=== PATIENT | male | born 1950 | race Caucasian/White ===

== ENCOUNTER 2025-01-13 15:29 | Emergency (ER) | payer MEDICARE, OTHER ==
[~2025-01-13] VITALS: Ht 160 cm; Wt 47.2 kg
[2025-01-13 16:18] LABS: PLATELET COUNT (AUTO) 388 K/uL (150-450); RED BLOOD CELL COUNT(AUTO) 3.85 MIL/uL (4.5-6.0); RED CELL DISTRIBUTION WIDTH 18.5 % (11.5-15.0); WHITE BLOOD COUNT (AUTO) 7.5 K/uL (4.3-11.0)
[2025-01-13 16:25] LABS: CALCIUM, SERUM 8.5 mg/dL (8.5-10.1); CREATININE 1.0 mg/dL (0.6-1.3); SODIUM SERUM 132 mmol/L (136-145); UREA NITROGEN, BLOOD 23 mg/dL (7-18)
[2025-01-13 16:30] LABS: INR 1.0 (0.91-1.10)
[2025-01-13] MEDS ORDERED: ACET-2030 PO (16:52)
[2025-01-13] MEDS ORDERED: LIDO30AD10 TP (16:52)
[2025-01-13] MEDS ORDERED: LIDOCAINE 5% (PATCH) 1 EA PATCH TP ONE (17:25)
[2025-01-13] MEDS ORDERED: ACETAMINOPHEN ES 500 MG TABLET ONE (17:25)
[2025-01-13] MEDS: ACETAMINOPHEN ES 500 MG TABLET PO ONE (17:43)
[2025-01-13] MEDS: LIDOCAINE 5% (PATCH) 1 EA PATCH TP SCH (17:43)
[2025-01-13 19:11] VITALS: BP 133/68; TEMP 98.1; O2SAT 97
== END 2025-01-13 19:12 | disposition home or self-care (01) ==
LOC: ER 15:31
DX: S42.031A Displaced fracture of lateral end of right clavicle, initial encounter for closed fracture (principal); S09.90XA Unspecified injury of head, initial encounter; E11.65 Type 2 diabetes mellitus with hyperglycemia; D64.9 Anemia, unspecified; I51.9 Heart disease, unspecified; Z74.01 Bed confinement status; Z88.0 Allergy status to penicillin; Z95.1 Presence of aortocoronary bypass graft; W19.XXXA Unspecified fall, initial encounter; Y93.89 Activity, other specified; Y92.89 Other specified places as the place of occurrence of the external cause; Y99.8 Other external cause status
CPT/HCPCS: 36415; 70450-TC; 73030-TC; 80048-TC; 85025-TC; 85027-TC; 85730-TC